=== PATIENT | male | born 1980 | race Two or more races ===

== ENCOUNTER 2017-04-23 20:45 | Emergency (ER) | payer BC ==
[~2017-04-23 20:45] MED LIST: ALBUTEROL17 GM INH; AUGMENTIN875 M1 DOB; HYDROCODON-ACE1 EAC7 PO; NO MEDICATIONS; PREDNISONE PO; TAMIFLU75 M1 PO; VOLTAREN75 MG PO
== END 2017-04-23 21:21 | disposition home or self-care (01) ==
LOC: SED 20:45
DX: H66.91 Otitis media, unspecified, right ear (principal)
CPT/HCPCS: 99282